=== PATIENT | female | born 1950 | race Caucasian/White ===

== ENCOUNTER 2025-05-07 20:18 | Observation (INO) ==
--- NOTE | 2025-05-07 20:36 | Emergency Department Note ---
Impression & Plan Left knee dislocation, Knee pain ED Provider Note CHIEF COMPLAINT: Knee pain HISTORY OF PRESENTING ILLNESS: The patient is a 75-year-old female who presents to the emergency department stating that she was standing up from her couch when she felt a pop in her left leg. The patient does report having a bilateral knee replacement 16 years ago. She states that she did this approximately 5 hours ago and delayed coming in because she did not want to. She called her friend who works for EMS and they told her that she needs to be evaluated. She does confirm that she is in a significant amount of pain but that it is controlled. Denies numbness or tingling. Denies of falling, hitting her head, LOC, or any other injury. She reports obvious deformity of her left knee. REVIEW OF SYSTEMS: See HPI for pertinent positives and pertinent negatives. ALLERGIES: NKDA MEDICATIONS: See below PAST MEDICAL HISTORY: See below PHYSICAL EXAM: VITAL SIGNS - Vital signs and nursing notes were reviewed. GENERAL - 75-year-old female stated age and in noticeable discomfort throughout the exam. MUSCULOSKELETAL - left knee deformed with significant amount of swelling. There is no erythema or ecchymosis. Tenderness upon palpation to the area. Patient has extremely limited range of motion. NEUROLOGIC/VASCULAR - 2+ dorsal pedis pulse palpated bilaterally. Normal sensation on exam. DIFFERENTIAL DIAGNOSIS: ED COURSE AND MEDICAL DECISION MAKING: HISTORY FROM INDEPENDENT HISTORIAN: The patient herself. MEDICATIONS GIVEN: Toradol 15 mg IV MONITOR: Continuous phototypesetting equipment monitor: Order was placed for continuous phototypesetting equipment monitor. INTERPRETATION OF LABS: I interpreted the labs with full lab results as below in the lab section of this note. Pertinent lab results discussed in the MDM section below. INTERPRETATION OF IMAGING: Imaging studies were interpreted by myself and read by radiology as per the imaging section of this note. X-ray left knee - Posterior subluxation or dislocation of the tibia relative to the femur. Postreduction x-ray left knee - Normal alignment of the left knee postreduction. CTA lower extremity left - No acute findings visualized in the left lower extremity. Left femoral and popliteal arteries showed no acute findings, no occlusion, no significant stenosis. ESCALATION OF CARE CONSIDERED: Escalation of care was considered upon evaluation of the patient noting a deformed left knee and no knee replacement. The knee was successfully reduced and there was no popliteal artery injury. The patient was placed in a knee immobilizer and discussed the possibility of going home but due to the patient living alone, stairs in her home, and ambulatory dysfunction she was admitted to medicine and will see orthopedics in the morning. CONSULTATIONS: - On-call orthopedic provider - Laurie Levy - Presented the patient to the on-call orthopedic provider. We did not want to delay reducing the knee as waiting would only make it longer. The knee was successfully reduced and a postreduction x-ray and CTA were ordered. She agrees with this plan and personally evaluated the images herself. We are to let her know if we need anything else at this time. - On-call [facility] hospitalist Iesha Romano PA-C - Presented the patient and discussed the successful knee reduction. We do not feel to say for the patient to go home due to living alone, many stairs in her home, as well as ambulatory dysfunction with crutches and a walker. She agrees to admitting her to medicine for PT/OT clearance. PROCEDURES: Left knee reduction Indication: Dislocation Risks, benefits, and alternatives were explained to the patient and verbal consent was obtained. A time out was taken. Neurovascular examination before the procedure revealed no abnormality. Normal sensation on exam. Posterior tibial and dorsal pedis pulse palpated distally. Conscious sedation was completed by my attending Dr. Mcneal. See his note for detail. The patient was placed in the supine position on the bed. A nursing staff member was able to gently flex the knee and hold countertraction at the thigh. The tibia was carefully manipulated back into its normal alignment with gentle anterior and posterior force as needed. Successful reduction was completed. The left knee was in normal anatomical alignment. Distal pulses remain intact. Sensation and motor function normal. Knee immobilizer was immediately placed. Postreduction x-ray was ordered confirming appropriate alignment. CTA was ordered to rule out popliteal artery injury. The patient had significant pain relief and tolerated the procedure well. I have personally spent greater than 30 minutes of critical care time in the direct management of this patient. This includes bedside care, interpretation of diagnostic studies, and testing, discussion with consultants, patient, and family members, and other required patient management activities. This 30 minutes is in excess of all separately billable procedures. MDM SUMMARY: I evaluated this 75-year-old female who presents to the emergency department due to injuring her left knee. See HPI and physical exam above. After evaluating the patient she had an obvious left knee dislocation. X-ray was immediately called and images were promptly taken. Posterior subluxation of the tibia relative to the femur. I discussed this case with my attending Dr. Mcneal and orthopedic consult was placed. We did not want to delay the reduction so we promptly proceeded. Conscious sedation was performed by my attending and the knee was reduced successfully. See procedure note above for detail on the knee reduction. Postreduction x-ray shows normal alignment. CTA of the left lower extremity shows the left femoral and popliteal artery show no acute finding, no occlusion, no significant stenosis. The patient's pain was significantly relieved. I did discuss with her concerns of her safety with going home. Patient does live alone and has many stairs in her house. She is not able to ambulate with crutches and cannot successfully keep weight off of the leg with a walker. She was admitted to medicine for OT/PT clearance and will be evaluated by orthopedics in the morning. Patient agrees to this plan and all of her questions were answered. The patient was admitted in stable condition. DIAGNOSIS: Left knee dislocation, knee pain The chart was completed utilizing [employer] Speech voice recognition software. Grammatical errors, random word insertions, pronoun errors, and incomplete sentences are an occasional consequence of this system due to software limitations, ambient noise, and hardware issues. Any formal questions or concerns about the content, text, or information contained within the body of this dictation should be directly addressed to the provider for clarification. 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 Babatunde Stephen with [facility] Medical History Left knee dislocation Renal calculus, right Basal cell carcinoma removed in office Arthritis Surgical History History of cystoscopy with stent placement History of colonoscopy History of bilateral tubal ligation History of lithotripsy x9 History of cholecystectomy History of cardiac cath 2013? @ [facility]--no stents History of appendectomy Total knee replacement status Family History Brother Family history of reaction to anesthesia difficulty waking Mother Family history of diabetes mellitus Family hx colonic polyps Breast cancer Father Myocardial infarction Aunt Ovarian cancer Denies family history of Prostate cancer Colorectal cancer Social History Smoking Status: Never smoker Second Hand Exposure: No; Do You Dip or Chew Tobacco: No; Hx Alcohol Use: No Hx Substance Use: No Preferred Language: Maldivian Communication Ability: Effective Visual Impairment: No Limitations Hearing Ability: Normal Yard Stocker Required: No Beliefs That Will Affect Care: None marital status: / Current Living Situation: Alone current occupational status: retired Feels Safe at Home: Yes Diet: regular Diet Comment: regular caffeine: Yes during the past year weight has: remained stable Dental Care, Regularly: Yes Physical Activity Frequency: Daily Seatbelt Use: always Sunscreen Use: Yes Assistive Devices: Glasses Allergies Allergies Allergy/AdvReac Type Severity Reaction Status Date / Time No Known Allergies Allergy Intermediate NONE Verified 02/24/25 12:55 Home Meds Home Medications Medication Instructions Recorded Confirmed aspirin 81 mg tablet,delayed 81 mg PO QAM 05/07/19 05/07/25 release (Adult Aspirin Regimen) loratadine 10 mg capsule 10 mg PO QAM 05/07/19 05/07/25 omega-3 fatty acids 1,000 mg 1,000 mg PO QAM 12/24/20 05/07/25 capsule cholecalciferol (vitamin D3) 125 5,000 unit PO QAM 12/28/20 05/07/25 mcg (5,000 unit) tablet (Vitamin D3) [id number] ac 400 1 tab PO QAM 12/28/20 05/07/25 mcg-calcium carb 500 mg-vit K1 20 mcg tablet (Women's 50 Plus Multivitamin) Previous Rx's Medication Instructions Recorded fluticasone propionate 50 2 spray intranasal DAILY PRN 02/09/24 mcg/actuation nasal allergy symptoms #48 grams spray,suspension metoprolol succinate 50 mg 50 mg PO DAILY #90 tabs 09/02/24 tablet,extended release 24 hr simvastatin 20 mg tablet 20 mg PO QPM #90 tabs 09/02/24 lorazepam 1 mg tablet 1 mg PO BID #60 tabs 04/22/25 Results & Data (ED) Vital Signs Vital Signs - 24 hr 05/07/25 22:24 05/07/25 22:30 05/07/25 23:00 Pulse Rate 87 83 Pulse Rate [Finger] 80 Pulse Rate from SpO2 Sensor 87 84 Pulse Rhythm [Finger] Regular Pulse Strength [Finger] Normal Respiratory Rate 15 18 20 Respiratory Effort / Characteristics Non-Labored Spontaneous Respiratory Depth Normal Respiratory Pattern Regular Blood Pressure 134/71 123/61 Blood Pressure [Right Arm] 130/79 Blood Pressure Mean 92 81 Blood Pressure Mean [Right Arm] 96 Blood Pressure Position [Right Arm] Lying Pulse Oximetry 97 97 97 Oxygen Delivery Method Room Air Room Air Laboratory Data 05/07/25 23:14 05/07/25 23:14 Lab Results 05/07/25 05/07/25 Range/Units 22:07 23:14 WBC 8.94 (4.8-10.8) K/ul RBC 3.84 L (4.20-5.40) M/uL Hgb 12.3 (12.0-16.0) g/dl POC Hgb 11.9 L (12.0-16.0) g/dl Hct 36.5 L (37.0-47.0) % POC Hct 35 L (37-47) % MCV 95.1 (80.0-100.0) fL MCH 32.0 (25.0-34.0) pg MCHC 33.7 (32.0-36.0) g/dL RDW Std Deviation 44.3 (36.4-46.3) fL RDW Coeff of Jay 12.7 (11.5-14.5) % Plt Count 217 (130-400) K/uL MPV 10.6 (9.4-12.4) fL Immature Gran % (Auto) 0.3 % Neut % (Auto) 63.4 % Lymph % (Auto) 29.5 % Trigg % (Auto) 5.1 % Eos % (Auto) 1.1 % Baso % (Auto) 0.6 % Neut # (Auto) 5.66 (1.40-6.50) K/uL Lymph # (Auto) 2.64 (1.20-3.40) K/uL Trigg # (Auto) 0.46 (0.11-0.59) K/uL Eos # (Auto) 0.10 (0.00-0.50) K/uL Baso # (Auto) 0.05 (0.00-0.20) K/uL Immature Gran # (Auto) 0.03 (0.01-0.20) K/uL POC Sodium 143 (135-144) mmol/L Sodium 139 (136-145) mmol/L POC Potassium 3.6 (3.3-5.0) mmol/L Potassium 3.7 (3.5-5.1) mmol/L POC Chloride 104 (101-112) mmol/L Chloride 106 (98-107) mmol/L Carbon Dioxide 26 (21-32) mmol/L POC Total CO2 25 (24-31) mmol/L Anion Gap 7 (3-11) POC Anion Gap 18.0 (16-25) mmol/L POC BUN 17 (7-18) mg/dl BUN 18 (6-23) mg/dl Creatinine 0.75 (0.6-1.2) mg/dl POC Creatinine 0.9 (0.6-1.3) mg/dl Est Cr Clr Drug Dosing 63.0 ml/min eGFR 83.49 BUN/Creatinine Ratio 24.0 H (10-20) Glucose 92 (70-99(Fasting)) mg/dl POC Glucose (other) 94 (70-99) mg/dl Calcium 9.4 (8.6-10.3) mg/dl POC Ioniz Calcium José Miguel 1.23 (1.12-1.32) mmol/l Total Bilirubin 0.5 (0.2-1.0) mg/dl AST 18 (13-39) U/L ALT 18 (7-52) U/L Alkaline Phosphatase 75 (34-104) U/L Total Protein 6.8 (6.0-8.3) gm/dl Albumin 3.8 (3.4-5.0) gm/dl Globulin 3.0 (2.5-4.0) gm/dl Albumin/Globulin Ratio 1.3 (0.9-2) Administered Medications Discontinued Medications Aspirin (Aspirin 81 Mg Ectab) 81 mg PO QAM ZANDER Stop: 06/07/25 08:59 Last Admin: 05/08/25 07:51 Dose: 81 mg Documented By: MAHAD Ioversol (Optiray 320 125ml) 115 ml IV ONCE ONE Stop: 05/07/25 22:22 Last Admin: 05/07/25 22:21 Dose: 115 ml Documented By: TRISTEN Ketorolac Tromethamine (Ketorolac Tromethamine 15 Mg/Ml Vial) 15 mg IV NOW STA Stop: 05/07/25 20:46 Last Admin: 05/07/25 20:59 Dose: 15 mg Documented By: MAGGIEV Lorazepam (Lorazepam 1 Mg Tab) 1 mg PO NOW STA Stop: 05/08/25 00:37 Last Admin: 05/08/25 01:36 Dose: 1 mg Documented By: Lorazepam (Lorazepam 1 Mg Tab) 1 mg PO BID ZANDER Stop: 06/07/25 08:59 Last Admin: 05/08/25 08:34 Dose: 1 mg Documented By: MAHAD Metoprolol Succinate (Metoprolol Succ 50mg Ext Rel Tab) 50 mg PO DAILY ZANDER Stop: 06/07/25 08:59 Last Admin: 05/08/25 07:51 Dose: 50 mg Documented By: MAHAD Propofol (Propofol Iv Emulsion 10 Mg/Ml 20 Ml Vial) Confirm Administered Dose 200 mg IV .STK-MED ONE Stop: 05/07/25 21:40 Last Admin: 05/07/25 21:45 Dose: Not Given Documented By: HAMMAD Propofol (Propofol Iv Emulsion 10 Mg/Ml 20 Ml Vial) 80 mg IV NOW STA Stop: 05/07/25 21:42 Last Admin: 05/07/25 21:50 Dose: 40 mg Documented By: HAMMAD Co-signed By: JARVIS Simvastatin (Simvastatin 20 Mg Tab) 20 mg PO NOW STA Stop: 05/08/25 00:37 Last Admin: 05/08/25 01:36 Dose: 20 mg Documented By: Discharge Plan Visit Data Chief Complaint: Knee Injury/Pain ED Provider: Kenneth Mcneal ED Midlevel Provider: Remedios Ugarte Discharge Problem: Left knee dislocation, Knee pain Patient Disposition: Admitted As Inpatient Condition: Good Discharge Instructions Interventions: ED Discharge Assessment Last Done: 05/08/25 01:44 Discharge Problem: Left knee dislocation Qualifiers: Encounter type: initial encounter Qualified Code(s): S83.105A - Unspecified dislocation of left knee, initial encounter Knee pain Qualifiers: Chronicity: acute Laterality: left Qualified Code(s): M25.562 - Pain in left knee
[2025-05-07] MEDS: KETOROLAC TROMETHAMINE 15 MG/ML VIAL IV STA (20:59)
--- NOTE | 2025-05-07 21:31 | Emergency Department Note ---
ED Visit Note I was consulted by the Advanced Practice Provider, Remedios Ugarte PA-C. I personally made/approved the management plan and take responsibility for the patient management. I performed a substantive portion of the visit. This includes the aspects of: -History/Physical/Personally seeing the patient -MDM -I independently interpreted the following studies: X-ray of the left knee revealed dislocation of previous knee replacement. Procedural Sedation Indication left knee dislocation. Total time: 8 minutes. Written consent was obtained after the risks and benefits were explained to the patient, including, but not limited to aspiration, allergic reaction, breathing difficulties, cardiac complications, vomiting, pain, event recall, bleeding, and/or infection. Pre-sedation examination and paperwork completed. The patient was on 100% oxygen via NRB prior to the procedure. Continous end tidal CO2 monitoring, pulse oximetry, and cardiac monitoring were utilized. Suction, airway equipment, medications, respiratory equipment, and appropriate personnel were prepared prior to the initiation of the procedure. A time out was taken. Sedation was achieved utilizing 40 mg of propofol. After I observed the patient had reached the appropriate level of sedation the main procedure was performed without complication. Sedation was discontinued and the monitoring continued. The patient recovered quickly from the effects of the medication without complication or adverse event. .
--- NOTE | 2025-05-07 21:31 | Emergency Department Note ---
Pre Sedation Assessment Vital Signs Temp Pulse Pulse Resp BP BP Pulse Ox 05/07/25 22:00 77 20 135/71 97 05/07/25 21:55 74 20 132/67 96 05/07/25 21:50 76 20 129/70 96 05/07/25 21:45 78 13 181/75 H 97 05/07/25 21:30 82 20 181/75 H 97 05/07/25 20:33 82 05/07/25 20:26 36.7 C 83 16 136/85 95 O2 Del Method 05/07/25 22:00 05/07/25 21:55 05/07/25 21:50 05/07/25 21:45 05/07/25 21:30 Room Air 05/07/25 20:33 05/07/25 20:26 Room Air Cardiovascular RRR, no murmur, no edema + regular rate and + regular rhythm; no tachycardic + S1 normal and + S2 normal no JVD + capillary refill normal; no edema Respiratory normal respiratory effort, lungs clear to auscultation + respiratory effort normal; no respiratory distress and no retractions + clear to auscultation bilaterally Pre-Sedation Airway Assessment Smoking Status: Never smoker Hx Sleep Apnea: No Hx Difficult Intubation: No Short, Thick Neck: No Oral Cavity: no Loose Teeth or no Chipped Teeth Mallampati Class: I ASA: ASA2E NPO Status Date of Last Intake of Fluids: 05/07/25 Time of Last Intake of Fluids: 12:00 Date of Last Intake of Solid Food: 05/07/25 Time of Last Intake of Solid Foods: 12:00 Procedure Planning Contraindications for Sedation: none Current Medications Reviewed: Yes Notes The planned sedation has been discussed with the patient. Informed Consent was obtained. I have identified the patient, determined the appropriateness of sedation and have assessed the patient immediately prior to the procedure. All medicine(s) and interventions are by my order.
--- NOTE | 2025-05-07 21:31 | Emergency Department Note ---
Post Sedation Assessment Vital Signs Temp Pulse Pulse Resp BP BP Pulse Ox 05/07/25 22:00 77 20 135/71 97 05/07/25 21:55 74 20 132/67 96 05/07/25 21:50 76 20 129/70 96 05/07/25 21:45 78 13 181/75 H 97 05/07/25 21:30 82 20 181/75 H 97 05/07/25 20:33 82 05/07/25 20:26 36.7 C 83 16 136/85 95 O2 Del Method 05/07/25 22:00 05/07/25 21:55 05/07/25 21:50 05/07/25 21:45 05/07/25 21:30 Room Air 05/07/25 20:33 05/07/25 20:26 Room Air Recovery Score Activity: Moves 4 extremities Respiration: Deep Breath/Cough Circulation: +/-20% PreAnes Value Consciousness: Fully Awake Oxygen Saturation: > 92% On Room Air Discharge Sedation Level of Care: Phase I Unexpected Event: None Post Sedation Plan On clinical assessment, the patient appears to have tolerated the sedation without complications. Patient is recovering as anticipated. Patient will continue to be monitored by nursing and may be discharged when sedation discharge criteria are met per below protocol. Upon Completions of procedure up to 15 minutes continue every 5 minute vital signs and the P.A.R. score; then discharge to a Phase I or Fast Track to Phase II per the following guidelines: * Discharge Patient to appropriate Phase II area if PAR is 8 or greater or return to pre- procedure baseline. The post - procedure orders will be as directed. * If PAR score is less than 8 or not return to pre-procedure baseline then patient will follow Phase I monitoring till PAR is reached for Phase II. The Phase I may be done in procedure room or may call to secure a Phase I area. * If naloxone or flumazenil are used for reversal, hold in Phase I for continued monitoring from when last reversal dose was given for a minimum of 60 minutes or longer pending the nurse and/or physician discretion of patient condition before discharge to Phase II. Please call the Sedation Physician to re-evaluate and complete post-note for discharge to Phase II area. Do NOT discharge from procedure sedation or Phase 1 until post- sedation evaluation note is complete by procedure /sedation MD Sedation Discharge Instructions to be given to the patient at discharge to home. Sedation Data Time Out Team Members Agree on the Following: Correct Patient, Correct Procedure, Correct Site-Side and Allergies Verified Team Agrees: Yes Time Out Performed Time: 21:49 Sedation Times Sedation Start Date: 05/07/25 Sedation Start Time: 21:50 Sedation End Date: 05/07/25 Sedation End Time: 21:58 Total Sedation Time: 8 Procedure Times Procedure Start Time:: 21:51 Procedure End Time: 21:55
[2025-05-07] MEDS: PROPOFOL IV EMULSION 10 MG/ML 20 ML VIAL IV ONE (21:45)
[2025-05-07] MEDS: PROPOFOL IV EMULSION 10 MG/ML 20 ML VIAL IV STA (21:50)
[2025-05-07] MEDS: OPTIRAY 320 125ml IV ONE (22:21)
--- NOTE | 2025-05-07 22:53 | XRay Report ---
Exam(s): XR LEFT KNEE, 3 views EXAM: XR Left Knee, 3 Views CLINICAL HISTORY: Reason for exam: knee pain, deformity, previous replacement. TECHNIQUE: Three views of the left knee. COMPARISON: None FINDINGS: Bones/joints: No displaced fracture . Left knee arthroplasty. Posterior subluxation or dislocation of the tibia relative to the femur. No bony lesion. Soft tissues: Soft tissue swelling. No radiopaque foreign body identified. IMPRESSION: Posterior subluxation or dislocation of the tibia relative to the femur. Electronically signed by: Suman Diana M.D. 05/07/25 22:52 PM
--- NOTE | 2025-05-07 22:54 | XRay Report ---
Exam(s): XR LEFT KNEE, 1-2 views EXAM: XR Left Knee, 1 or 2 Views CLINICAL HISTORY: Reason for exam: post red. TECHNIQUE: Frontal and/or lateral views of the left knee. COMPARISON: Same-day left knee radiographs FINDINGS: Bones/joints: Left knee arthroplasty. Normal alignment of the left knee status post reduction. No displaced fracture. Soft tissues: Mild soft tissue swelling. IMPRESSION: Normal alignment of the left knee status post reduction. Electronically signed by: Suman Diana M.D. 05/07/25 22:53 PM
--- NOTE | 2025-05-07 23:23 | CT Scan Report ---
Exam(s): CTA EXTREMITY LEFT LOWER W/WO Contrast IV Amt: 115 ml optiray 320 EXAM: CT Angiography of the Left Lower Extremity With Intravenous Contrast CLINICAL HISTORY: Reason for exam: dislocated knee post reduction, focus on popliteal. TECHNIQUE: Axial computed tomographic angiography images of the left lower extremity with intravenous contrast. CTDI is 75.99 mGy and DLP is 1100. 87 mGy-cm. Automated exposure control was utilized for the study. A dose lowering technique was utilized adhering to the principles of ALARA. MIP reconstructed images were created and reviewed. CONTRAST: Patient received 115 ml optiray 320 of IV contrast COMPARISON: Same-day left knee radiographs FINDINGS: VASCULATURE: Left femoral/popliteal arteries: No acute findings. No occlusion or significant stenosis. Left calf/foot arteries: No acute findings. No occlusion or significant stenosis. LOWER EXTREMITY: Bones/joints: Left knee arthroplasty. Small knee joint effusion. No acute fracture or dislocation identified. Soft tissues: Mild soft tissue swelling. IMPRESSION: No acute findings in the visualized left lower extremity arteries. Electronically signed by: Suman Diana M.D. 05/07/25 23:22 PM
[2025-05-07 23:38] LABS: Hematocrit (blood only) 36.5 % (37.0-47.0); Hemoglobin 12.3 g/dl (12.0-16.0); Immature Granulocytes # (auto) 0.03 K/uL (0.01-0.20); Immature Granulocytes % (auto) 0.3 %; Mean Corpuscular Hemoglobin 32.0 pg (25.0-34.0); Mean Corpuscular Volume 95.1 fL (80.0-100.0); Platelet Count 217 K/uL (130-400); RDW Standard Deviation 44.3 fL (36.4-46.3); Red Blood Count 3.84 M/uL (4.20-5.40); White Blood Count 8.94 K/ul (4.8-10.8)
[2025-05-07 23:54] LABS: Alanine Aminotransferase 18.0 U/L (7-52); Albumin Globulin Ratio 1.3 (0.9-2); Alkaline Phosphatase 75.0 U/L (34-104); Anion Gap 7.0 (3-11); Bilirubin,Total 0.5 mg/dl (0.2-1.0); Blood Urea Nitrogen 18.0 mg/dl (6-23); Calcium 9.4 mg/dl (8.6-10.3); Carbon Dioxide 26.0 mmol/L (21-32); Chloride 106.0 mmol/L (98-107); Creatinine Clr Calc Pharmacy 63.0 ml/min; Globulin 3.0 gm/dl (2.5-4.0); Glucose 92.0 mg/dl (70-99(Fasting)); Potassium 3.7 mmol/L (3.5-5.1); Sodium 139.0 mmol/L (136-145); Total Protein 6.8 gm/dl (6.0-8.3)
--- NOTE | 2025-05-08 00:23 | History & Physical Report ---
Date of Service May 08, 2025 Assessment & Plan (1) Ambulatory dysfunction: (2) Left knee dislocation: (3) History of total bilateral knee replacement (TKR): Plan Patient is a 75-year-old female with bilateral knee replacements who came in after she went from sitting to standing and had a pop in her left knee which was found to be dislocated. This was reduced in the ED and CTAs show her popliteal arteries are intact however patient has many stairs at home and lives at home alone, she was unable to ambulate with crutches and a walker into the ED so she is being admitted for ambulatory dysfunction. #ambulatory dysfunction/left knee dislocation has bilateral knee replacements, post reduction xr shows normal alignment, CTA negative for any acute changes. Patient lives at home alone and has multiple steps. PT/OT evals Orthopedics team consulted, follows with [facility] in outpatient setting Tylenol and Toradol for breakthrough pain as needed Knee brace in place #Basal cell carcinomahad removal with first aid attendant reportedly 05/07, stitches on right shoulder #HTN/paroxysmal SVTcontinue metoprolol #HLDcontinue ASA and statin #Anxietycontinue Ativan as needed VTE ppx: SCDs, low risk and obs Dispo: MedSurg, OBS - Patient would like for discharge home 05/08 after orthopedics eval. Admission and Anticipated Discharge Date Admission Date: 05/08/25 History of Present Illness Chief Complaint: knee injury Primary Care Provider: Yudith Salvador DO Patient is a 75-year-old female with bilateral knee replacements who came in after she went from sitting to standing and had a pop in her left knee which was found to be dislocated. This was reduced in the ED and CTAs show her popliteal arteries are intact however patient has many stairs at home and lives at home alone, she was unable to ambulate with crutches and a walker into the ED so she is being admitted for ambulatory dysfunction. Patient seen at bedside. She stated she went from sitting to standing this evening and felt a pop in her left knee and was unable to stand on it anymore, she crawled to the bathroom and tried to crawl to her kitchen to get ice on it however was unable to so she called EMS. In the ED showed left knee dislocation, CTA showed popliteal artery intact. After dislocation was resolved, patient had difficulty ambulating with crutches and a walker and she has many stairs and lives at home alone as her approximately 10 years ago. She is being admitted for orthopedics eval and PT/OT evals in the morning however she would really like to go home tomorrow. She follows with [facility] orthopedics however not on-call this week. She denies any significant pain, numbness, tingling to her extremity. She denies nicotine or alcohol use. She is due for her evening medications including statin and Ativan. She wishes to be DNR/DNI. She stated she had basal cell carcinoma removed from her right shoulder this morning and has stitches in place. Allergies Allergy/AdvReac Type Severity Reaction Status Date / Time No Known Allergies Allergy Intermediate NONE Verified 02/24/25 12:55 Home Medications Medication Instructions Recorded Confirmed Type aspirin 81 mg tablet,delayed 81 mg PO QAM 05/07/19 05/07/25 History release (Adult Aspirin Regimen) loratadine 10 mg capsule 10 mg PO QAM 05/07/19 05/07/25 History omega-3 fatty acids 1,000 mg 1,000 mg PO QAM 12/24/20 05/07/25 History capsule cholecalciferol (vitamin D3) 125 5,000 unit PO QAM 12/28/20 05/07/25 History mcg (5,000 unit) tablet (Vitamin D3) bsupjfsr-ifh-wqzhl ac 400 1 tab PO QAM 12/28/20 05/07/25 History mcg-calcium carb 500 mg-vit K1 20 mcg tablet (Women's 50 Plus Multivitamin) fluticasone propionate 50 2 spray intranasal DAILY PRN 02/09/24 05/07/25 Rx mcg/actuation nasal allergy symptoms #48 grams spray,suspension metoprolol succinate 50 mg 50 mg PO DAILY #90 tabs 09/02/24 05/07/25 Rx tablet,extended release 24 hr simvastatin 20 mg tablet 20 mg PO QPM #90 tabs 09/02/24 05/07/25 Rx lorazepam 1 mg tablet 1 mg PO BID #60 tabs 04/22/25 05/07/25 Rx Past Med/Surg History Problem List (Updated 05/08/25 @ 00:52 by Iesha Romano PA-C) History of total bilateral knee replacement (TKR) Left knee dislocation Ambulatory dysfunction Shingles Family history of ovarian cancer Petechial rash Sacroiliitis Greater trochanteric bursitis Osteopenia Hyperlipidemia Lumbar radiculopathy (Chronic) Lumbar disc herniation with radiculopathy (Chronic) Right L5-S1 disc extrusion HTN (hypertension) (Chronic) Vitamin D deficiency (Chronic) Anxiety (Chronic) SVT (supraventricular tachycardia) (Chronic) follows with Dr. Babatunde Stephen with [facility] Medical History Renal calculus, right Basal cell carcinoma Arthritis Surgical History History of total bilateral knee replacement (TKR) History of cystoscopy History of colonoscopy History of bilateral tubal ligation History of lithotripsy History of cholecystectomy History of cardiac cath History of appendectomy Total knee replacement status Family History Brother Family history of reaction to anesthesia Mother Family history of diabetes mellitus Family hx colonic polyps Breast cancer Father Myocardial infarction Aunt Ovarian cancer Denies family history of Prostate cancer Colorectal cancer Social History Smoking Status: Never smoker Second Hand Exposure: No; Do You Dip or Chew Tobacco: No; Hx Alcohol Use: No Hx Substance Use: No Preferred Language: Portuguese Communication Ability: Effective Visual Impairment: No Limitations Hearing Ability: Normal Therapy Teacher Required: No Beliefs That Will Affect Care: None marital status: / Current Living Situation: Alone current occupational status: retired Other Information That Helps Us Care for You: No Feels Safe at Home: Yes Safety Concerns: Feels Safe At This Time Diet: regular Diet Comment: regular caffeine: Yes during the past year weight has: remained stable Dental Care, Regularly: Yes Physical Activity Frequency: Daily Seatbelt Use: always Sunscreen Use: Yes Assistive Devices: Glasses Assistive Devices Comment: partial upper Review of Systems Review of Systems: see HPI Physical Exam Physical Exam: The patient is awake, alert and oriented 3, well developed and well nourished, normocephalic and atraumatic, in no acute distress. Non-toxic appearing. HEENT- EOMI, mucous membranes moist. Hearing grossly intact. Heart-normal S1 and S2. No murmurs, rubs or gallops. Lungs-clear bilaterally, no respiratory distress, no accessory muscle use. Abdomen-normal bowel sounds and soft. No ascites noted. Non-tender. Extremities- no clubbing, cyanosis, or edema. Rheumatologic-left knee brace in place. neurovascularly intact. Psychiatric-normal affect. Results & Data Results & Data Vital Signs (Past 12 Hours) Vital Signs Temp Pulse Pulse Resp BP BP Pulse Ox 05/07/25 23:00 80 20 130/79 97 05/07/25 22:30 83 18 123/61 97 05/07/25 22:24 87 15 134/71 97 05/07/25 22:05 135/71 05/07/25 22:05 78 20 143/72 H 97 05/07/25 22:00 72 8 L 132/67 96 05/07/25 22:00 77 20 135/71 97 05/07/25 21:55 74 20 132/67 96 05/07/25 21:50 76 20 129/70 96 05/07/25 21:45 78 13 181/75 H 97 05/07/25 21:30 82 20 181/75 H 97 05/07/25 20:33 82 05/07/25 20:26 36.7 C 83 16 136/85 95 O2 Del Method 05/07/25 23:00 Room Air 05/07/25 22:30 Room Air 05/07/25 22:24 05/07/25 22:05 05/07/25 22:05 05/07/25 22:00 05/07/25 22:00 05/07/25 21:55 05/07/25 21:50 05/07/25 21:45 05/07/25 21:30 Room Air 05/07/25 20:33 05/07/25 20:26 Room Air Laboratory Results Reviewed CBC and CMP Diagnostic Findings reviewed left knee XR and lower extremity CTA Medications Administered EDpropofol 280 Mg IV, Toradol 15 Mg IV Code Status & VTE Plan Code Status dnr/dni VTE Prophylaxis Plan VTE Prophylaxis will be ordered: Yes Supervising Physician Co-Signing Physician Notes I personally saw and examined the patient. I independently reviewed the labs, EKG, imaging, problem list, medication list, past medical history and family history. I verified all hull points and agree with Iesha Romano PA-C with the following exceptions and/or additions: 75 year old female presents to the ER with left knee pain with pop in her left leg O/E HS RRR, no murmurs, Chest CTAB, Abdo SNT, left leg in brace, DP/PT pulses intact, normal sensation in feet A/P Ambulatory dysfunction / posterior subluxation of tibia to femur - consult orthopedics, knee brace in place, PT/OT PG Care Time/CCT Total # of Minutes Spent Total Time Spent with Patient: Total time spent is greater than 50% in coordination of care (as documented) at patient's floor/unit and/or counseling patient: Coding Level of Care Code 65781 INT INP/OBS CARE 3/75MIN Diagnoses Ambulatory dysfunction R26.2 Left knee dislocation S83.105A History of total bilateral knee replacement (TKR) Z96.653
[2025-05-08] MEDS: LORazepam 1 MG TAB PO STA (01:36)
[2025-05-08] MEDS: SIMVASTATIN 20 MG TAB PO STA (01:36)
[2025-05-08] MEDS ORDERED: ONDANSETRON INJ 2 MG/ML 2 ML VIAL IV PRN (02:02)
[2025-05-08] MEDS ORDERED: KETOROLAC TROMETHAMINE 15 MG/ML VIAL IV PRN (02:02)
[2025-05-08] MEDS ORDERED: ACETAMINOPHEN 325 MG TAB PO PRN (02:02)
[2025-05-08] MEDS ORDERED: MELATONIN 3 MG TAB PO PRN (02:02)
[2025-05-08] MEDS ORDERED: DOCUSATE SODIUM 100 MG CAP PO PRN (02:02)
[2025-05-08] MEDS ORDERED: FLUTICASONE PROPIONATE NA SPR 16 GM BTL NAE PRN (02:02)
[2025-05-08 02:07] VITALS: RESP 18; O2SAT 98
[2025-05-08 07:19] VITALS: BP 150/80; PULSE 82; TEMP 97.3
[2025-05-08] MEDS: METOPROLOL SUCC 50MG EXT REL TAB PO SCH (07:51)
[2025-05-08] MEDS: ASPIRIN 81 MG ECTAB PO SCH (07:51)
[2025-05-08] MEDS: LORazepam 1 MG TAB PO SCH (08:34)
--- NOTE | 2025-05-08 08:40 | Orthopedic Consultation ---
Date of Service May 08, 2025 Assessment & Plan (1) Dislocation of prosthesis of left knee joint: * Case/imaging reviewed and discussed with Dr Wu * No further orthopedic procedure indicated at this time * Recommend continued use of knee immobilizer, otherwise activity as tolerated * Disposition: Home * Daily treatment: Physical Therapy/ Occupational Therapy per protocol * Weight bearing status: WBAT with knee immobilizer * Pain control * Remainder care per primary team * Recommend close follow-up with primary surgeon * Stable for discharge from orthopedic standpoint History of Present Illness Reason for Consultation: .Active Problems: S/p reduction of left prosthetic knee dislocation Requesting Physician: . Attending Physician: Kevin Vallejo MD .Patient is a 75y/o female with left knee pain. Surgical history bilateral total knee replacement approximately 16 years ago with [facility]. PMH including SVT, HTN, hyperlipidemia. Presents to hospital with left knee pain. Per report patient was sitting on her couch and when she went to get up felt sudden pain with deformity of the left knee. Unable to ambulate. After a few hours called a friend who then EMS for hospital evaluation. ED workup including x-ray of left knee demonstrating dislocated left knee prosthesis. Patient then underwent successful ER sedation and closed reduction. Postprocedure CTA demonstrating intact popliteal artery admitted to hospital team for observation, orthopedics consulted for management recommendations. At time of exam patient sitting comfortably in bed, no acute distress. Endorses minimal pain at the left knee at rest, has not been out of bed yet secondary to weightbearing restrictions. Has been compliant with knee immobilizer. Denies tingling or numbness of the left lower extremity. Besides this event denies any complications following her knee replacement surgery. Allergies Allergy/AdvReac Type Severity Reaction Status Date / Time No Known Allergies Allergy Intermediate NONE Verified 02/24/25 12:55 Home Medications Medication Instructions Recorded Confirmed Type aspirin 81 mg tablet,delayed 81 mg PO QAM 05/07/19 05/07/25 History release (Adult Aspirin Regimen) loratadine 10 mg capsule 10 mg PO QAM 05/07/19 05/07/25 History omega-3 fatty acids 1,000 mg 1,000 mg PO QAM 12/24/20 05/07/25 History capsule cholecalciferol (vitamin D3) 125 5,000 unit PO QAM 12/28/20 05/07/25 History mcg (5,000 unit) tablet (Vitamin D3) nksnxrmn-cqg-jykpo ac 400 1 tab PO QAM 12/28/20 05/07/25 History mcg-calcium carb 500 mg-vit K1 20 mcg tablet (Women's 50 Plus Multivitamin) fluticasone propionate 50 2 spray intranasal DAILY PRN 02/09/24 05/07/25 Rx mcg/actuation nasal allergy symptoms #48 grams spray,suspension metoprolol succinate 50 mg 50 mg PO DAILY #90 tabs 09/02/24 05/07/25 Rx tablet,extended release 24 hr simvastatin 20 mg tablet 20 mg PO QPM #90 tabs 09/02/24 05/07/25 Rx lorazepam 1 mg tablet 1 mg PO BID #60 tabs 04/22/25 05/07/25 Rx Past Med/Surg History Problem List (Updated 05/08/25 @ 08:39 by Iglesia Dubon PA-C) 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 Babatunde Stephen with [facility] Medical History (Updated 05/08/25 @ 08:39 by Iglesia Dubon PA-C) Left knee dislocation Renal calculus, right Basal cell carcinoma removed in office Arthritis Surgical History (Updated 05/08/25 @ 00:52 by Iesha Romano PA-C) History of cystoscopy with stent placement History of colonoscopy History of bilateral tubal ligation History of lithotripsy x9 History of cholecystectomy History of cardiac cath 2012? @ [facility]--no stents History of appendectomy Total knee replacement status Family History Brother Family history of reaction to anesthesia Mother Family history of diabetes mellitus Family hx colonic polyps Breast cancer Father Myocardial infarction Aunt Ovarian cancer Denies family history of Prostate cancer Colorectal cancer Social History Smoking Status: Never smoker Second Hand Exposure: No; Do You Dip or Chew Tobacco: No; Hx Alcohol Use: No Hx Substance Use: No Preferred Language: Kiswahili Communication Ability: Effective Visual Impairment: No Limitations Hearing Ability: Normal 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 Physical Exam . * General: Alert and oriented, no acute distress * Constitutional: well-developed, well-nourished. * Respiratory: Normal respiratory effort, no distress * Gastrointestinal: No tenderness to palpation, no rigidity or guarding. * Skin: No rash or lesion. * Neurologic: Grossly normal * Musculoskeletal: Left knee with knee immobilizer intact, removed for exam. Well-healed surgical incision. Large knee effusion, otherwise no obvious deformity overlying skin changes to the left lower extremity. Mild diffuse TTP of the patellofemoral, medial/lateral joint lines, distal thigh. Otherwise no specific tenderness of the thigh, lower leg, foot/ankle. Straight leg raise intact. ROM knee not assessed. AROM. Ankle intact. Sen sation intact plantar/dorsal foot. Brisk capillary refill. Results & Data Results & Data Laboratory Results . Diagnostic Findings . Knee X-Ray 05/07/25 20:44 Exam(s): XR LEFT KNEE, 3 views EXAM: XR Left Knee, 3 Views CLINICAL HISTORY: Reason for exam: knee pain, deformity, previous replacement. TECHNIQUE: Three views of the left knee. COMPARISON: None FINDINGS: Bones/joints: No displaced fracture . Left knee arthroplasty. Posterior subluxation or dislocation of the tibia relative to the femur. No bony lesion. Soft tissues: Soft tissue swelling. No radiopaque foreign body identified. IMPRESSION: Posterior subluxation or dislocation of the tibia relative to the femur. Electronically signed by: Suman Diana M.D. 05/07/25 22:52 PM Lower Extremity CTA 05/07/25 21:55 Exam(s): CTA EXTREMITY LEFT LOWER W/WO Contrast IV Amt: 115 ml optiray 320 EXAM: CT Angiography of the Left Lower Extremity With Intravenous Contrast CLINICAL HISTORY: Reason for exam: dislocated knee post reduction, focus on popliteal. TECHNIQUE: Axial computed tomographic angiography images of the left lower extremity with intravenous contrast. CTDI is 75.99 mGy and DLP is 1100. 87 mGy-cm. Automated exposure control was utilized for the study. A dose lowering technique was utilized adhering to the principles of ALARA. MIP reconstructed images were created and reviewed. CONTRAST: Patient received 115 ml optiray 320 of IV contrast COMPARISON: Same-day left knee radiographs FINDINGS: VASCULATURE: Left femoral/popliteal arteries: No acute findings. No occlusion or significant stenosis. Left calf/foot arteries: No acute findings. No occlusion or significant stenosis. LOWER EXTREMITY: Bones/joints: Left knee arthroplasty. Small knee joint effusion. No acute fracture or dislocation identified. Soft tissues: Mild soft tissue swelling. IMPRESSION: No acute findings in the visualized left lower extremity arteries. Electronically signed by: Suman Diana M.D. 05/07/25 23:22 PM Knee X-Ray 05/07/25 21:56 Exam(s): XR LEFT KNEE, 1-2 views EXAM: XR Left Knee, 1 or 2 Views CLINICAL HISTORY: Reason for exam: post red. TECHNIQUE: Frontal and/or lateral views of the left knee. COMPARISON: Same-day left knee radiographs FINDINGS: Bones/joints: Left knee arthroplasty. Normal alignment of the left knee status post reduction. No displaced fracture. Soft tissues: Mild soft tissue swelling. IMPRESSION: Normal alignment of the left knee status post reduction. Electronically signed by: Suman Diana M.D. 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
--- NOTE | 2025-05-08 10:18 | Discharge Summary ---
Discharge Summary Date of Service May 08, 2025 Principal Dx & Hospital Course #1 = Principal Diagnosis (1) Left knee dislocation: (2) Ambulatory dysfunction: (3) History of total bilateral knee replacement (TKR): Plan Patient is a 75-year-old female with bilateral knee replacements who came in after she went from sitting to standing and had a pop in her left knee which was found to be dislocated. This was reduced in the ED and CTAs show her popliteal arteries are intact however patient has many stairs at home and lives at home alone, she was unable to ambulate with crutches and a walker into the ED so she was admitted for ambulatory dysfunction. Her ambulation improved with knee immobilizer and she requested discharge home. #Ambulatory dysfunction/Left knee dislocation has bilateral knee replacements, post reduction x-ray showed normal alignment, CTA negative for any acute changes. Patient lives at home alone and has multiple steps. 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 Ortho saw her and recommends to weight-bear as tolerated with the knee immobilizer and she can follow-up with her primary [facility] surgeon outpatient as scheduled at the end of the month. Medication Changes From Visit None Admission HPI Per Admitting Provider Patient is a 75-year-old female with bilateral knee replacements who came in after she went from sitting to standing and had a pop in her left knee which was found to be dislocated. This was reduced in the ED and CTAs show her popliteal arteries are intact however patient has many stairs at home and lives at home alone, she was unable to ambulate with crutches and a walker into the ED so she is being admitted for ambulatory dysfunction. Patient seen at bedside. She stated she went from sitting to standing this evening and felt a pop in her left knee and was unable to stand on it anymore, she crawled to the bathroom and tried to crawl to her kitchen to get ice on it however was unable to so she called EMS. In the ED showed left knee dislocation, CTA showed popliteal artery intact. After dislocation was resolved, patient had difficulty ambulating with crutches and a walker and she has many stairs and lives at home alone as her approximately 10 years ago. She is being admitted for orthopedics eval and PT/OT evals in the morning however she would really like to go home tomorrow. She follows with [facility] orthopedics however not on-call this week. She denies any significant pain, numbness, tingling to her extremity. She denies nicotine or alcohol use. She is due for her evening medications including statin and Ativan. She wishes to be DNR/DNI. She stated she had basal cell carcinoma removed from her right shoulder this morning and has stitches in place. Discharge Exam General: No acute distress, nondiaphoretic, well-developed, well-nourished. Cardiac: Regular rate and rhythm without murmurs gallops or rubs. Pulm: Clear to auscultation bilaterally without wheezes, rales or rhonchi. Normal respiratory effort. 98% on room air. Abdominal: Soft, nontender, nondistended. Bowel sounds present. Neuro: A&O x3. No focal neurological deficits. MSK: Left knee in immobilizing brace. Neurovascularly intact. Discharge Plan Discharge Items Patient Disposition: Home - Self-Care Reason For Visit: KNEE DISLOCATION, AMBULATORY DYSFUNCTION Discharge Diagnosis: Knee dislocation, ambulatory dysfunction Activity: Per Instructions section Non-emergency contact: Primary Care Provider Call non-emergency contact if: you have any medication questions and your symptoms worsen Follow-up/Referrals: Yudith Salvador DO [Primary Care Provider] - 05/20/25 10:20 am (Follow-up in 1- 2 weeks) Diet: Regular Addtl Attending Provider Instructions: Vianey, You were admitted to the hospital after a left knee dislocation that resulted in ambulatory dysfunction. Your knee dislocation was reduced in the emergency department. You were seen by the orthopedics team who recommends you weight- bear as tolerated with the knee immobilizer. Please follow the instructions the physical therapist reviewed with you. You can use Tylenol or ibuprofen as needed for pain. Please follow-up with your PCP in 1-2 weeks. Please follow-up with your [facility] orthopedic surgeon as scheduled at the end of the month. Pending Studies at Discharge: No Stand-Alone Forms: My [facility], Smoking Cessation Medications and DC Order Prescriptions: Continued aspirin [Adult Aspirin Regimen] 81 mg tablet,delayed release (DR/EC) 81 mg PO QAM loratadine 10 mg capsule 10 mg PO QAM omega-3 fatty acids 1,000 mg capsule 1,000 mg PO QAM fluticasone propionate 50 mcg/actuation spray,suspension 2 spray intranasal DAILY PRN (Reason: allergy symptoms) Qty: 48 3RF Rx Instructions: administer into each nostril metoprolol succinate 50 mg tablet extended release 24 hr 50 mg PO DAILY Qty: 90 2RF simvastatin 20 mg tablet 20 mg PO QPM Qty: 90 3RF lorazepam 1 mg tablet 1 mg PO BID Qty: 60 0RF cholecalciferol (vitamin D3) [Vitamin D3] 125 mcg (5,000 unit) Tablet 5,000 unit PO QAM Women's 50 Plus Multivitamin 400 mcg-500 mg calcium-20 mcg Tablet 1 tab PO QAM Discharge Orders: Discharge Order (Routine); Ordered 05/08/25 Ordered By: Janie Barbosa Admission Data Admit Date/Time: 05/08/25 00:39 Attending Provider: Kevin Vallejo Admit Provider: Kevin Sullivan Primary Care Provider: Yudith Salvador Other Providers: Iesha Romano; Iglesia Wu Hospital Stay Data Consultations 05/08/25 00:34 ED Decision to Admit Stat 05/08/25 02:02 Consult Orthopedic Surgery Routine Diagnostic Imagining Performed Knee X-Ray 05/07/25 20:44 Exam(s): XR LEFT KNEE, 3 views EXAM: XR Left Knee, 3 Views CLINICAL HISTORY: Reason for exam: knee pain, deformity, previous replacement. TECHNIQUE: Three views of the left knee. COMPARISON: None FINDINGS: Bones/joints: No displaced fracture . Left knee arthroplasty. Posterior subluxation or dislocation of the tibia relative to the femur. No bony lesion. Soft tissues: Soft tissue swelling. No radiopaque foreign body identified. IMPRESSION: Posterior subluxation or dislocation of the tibia relative to the femur. Electronically signed by: Suman Diana M.D. 05/07/25 22:52 PM Lower Extremity CTA 05/07/25 21:55 Exam(s): CTA EXTREMITY LEFT LOWER W/WO Contrast IV Amt: 115 ml optiray 320 EXAM: CT Angiography of the Left Lower Extremity With Intravenous Contrast CLINICAL HISTORY: Reason for exam: dislocated knee post reduction, focus on popliteal. TECHNIQUE: Axial computed tomographic angiography images of the left lower extremity with intravenous contrast. CTDI is 75.99 mGy and DLP is 1100. 87 mGy-cm. Automated exposure control was utilized for the study. A dose lowering technique was utilized adhering to the principles of ALARA. MIP reconstructed images were created and reviewed. CONTRAST: Patient received 115 ml optiray 320 of IV contrast COMPARISON: Same-day left knee radiographs FINDINGS: VASCULATURE: Left femoral/popliteal arteries: No acute findings. No occlusion or significant stenosis. Left calf/foot arteries: No acute findings. No occlusion or significant stenosis. LOWER EXTREMITY: Bones/joints: Left knee arthroplasty. Small knee joint effusion. No acute fracture or dislocation identified. Soft tissues: Mild soft tissue swelling. IMPRESSION: No acute findings in the visualized left lower extremity arteries. Electronically signed by: Suman Diana M.D. 05/07/25 23:22 PM Knee X-Ray 05/07/25 21:56 Exam(s): XR LEFT KNEE, 1-2 views EXAM: XR Left Knee, 1 or 2 Views CLINICAL HISTORY: Reason for exam: post red. TECHNIQUE: Frontal and/or lateral views of the left knee. COMPARISON: Same-day left knee radiographs FINDINGS: Bones/joints: Left knee arthroplasty. Normal alignment of the left knee status post reduction. No displaced fracture. Soft tissues: Mild soft tissue swelling. IMPRESSION: Normal alignment of the left knee status post reduction. Electronically signed by: Suman Diana M.D. 05/07/25 22:53 PM Pending Results Patient Have Any Pending Studies at Discharge: No Discharge Instructions Given to Patient (Per Discharging Provider) Vianey, You were admitted to the hospital after a left knee dislocation that resulted in ambulatory dysfunction. Your knee dislocation was reduced in the emergency department. You were seen by the orthopedics team who recommends you weight- bear as tolerated with the knee immobilizer. Please follow the instructions the physical therapist reviewed with you. You can use Tylenol or ibuprofen as needed for pain. Please follow-up with your PCP in 1-2 weeks. Please follow-up with your [facility] orthopedic surgeon as scheduled at the end of the month. Total Time Total Time Spent Total Time Spent (In Minutes): Greater than 30 minutes spent completing this discharge process including direct patient care, medication reconciliation, documentation, review of labs and images, and coordination of care. Coding Level of Care Code 06182 INP/OBS DISCH >30 MIN Diagnoses Left knee dislocation S83.105A Ambulatory dysfunction R26.2 History of total bilateral knee replacement (TKR) Z96.653
[2025-05-08] MEDS ORDERED: SIMVASTATIN 20 MG TAB PO SCH (21:00)
== END 2025-05-08 10:10 | disposition home or self-care (01) ==
LOC: ED 20:18 → 3E 20:18 → SUATTDRO 05-08 00:39 → 3E 05-08 01:44